=== PATIENT | female | born 1985 | race Caucasian/White ===

== ENCOUNTER 2018-08-21 18:20 | Inpatient (IN) | payer OTHER ==
[2018-08-21] MEDS ORDERED: BUTORPHANOL TARTRATE 2 MG/ML VIAL IVPUSH ONE (18:45)
[2018-08-21] MEDS ORDERED: PROMETHAZINE HCL 25 MG/1 ML VIAL IVPUSH ONE (18:45)
[2018-08-21] MEDS ORDERED: BUTORPHANOL TARTRATE 1 MG/ML VIAL ONE ×2 (19:10)
[2018-08-21] MEDS ORDERED: PROMETHAZINE HCL 25 MG/1 ML VIAL ONE (19:11)
[2018-08-21] MEDS ORDERED: WITCH HAZEL 50% (TUCKS) 40 PAD/JAR PAD TP PRN (19:26)
[2018-08-21] MEDS ORDERED: METHYLERGONOVINE MALEATE 0.2 MG/1 ML AMP IM PRN (19:26)
[2018-08-21] MEDS ORDERED: BISACODYL 10 MG SUPP.RECT RC PRN (19:26)
[2018-08-21] MEDS ORDERED: BENZOCAINE 20% 57 GM BOTTLE TP PRN (19:26)
[2018-08-21] MEDS ORDERED: BENZOCAINE 28 GM HEMORRHOIDAL OINTMENT TP PRN (19:26)
[2018-08-21 19:27] VITALS: BMI 29.6
[2018-08-21] MEDS ORDERED: D5W-LR W/ 20 UNITS OXYTOCIN 20 UNIT/1,000 ML INFUS.BAG IV SCH (19:30)
[2018-08-21] MEDS ORDERED: OXYTOCIN 20 UNITS in 0.9% NS 20 UNIT/1,000 ML INFUS.BAG IV SCH (19:30)
[2018-08-21 20:02] LABS: ANION GAP 13 MMOL/L (8-16); BLOOD UREA NITROGEN 10 mg/dL (7-18); CALCIUM 8.3 mg/dL (8.5-10.1); CHLORIDE 109 mmol/L (98-107); CO2 18 mmol/L (21-32); CREATININE 0.6 mg/dL (0.55-1.3); GLUCOSE,RANDOM 160 mg/dL (74-106); POTASSIUM 3.7 mmol/L (3.5-5.1); SODIUM 140 mmol/L (136-145)
[2018-08-21] MEDS ORDERED: OXYTOCIN 20 UNITS in 0.9% NS 20 UNIT/1,000 ML INFUS.BAG IV ONE (20:09)
[2018-08-21 20:32] LABS: BASO % 0.3 % (0-2.0); EOS % 0.4 % (0-4.5); HEMATOCRIT 35.9 % (32.4-45.2); HEMOGLOBIN 13.1 GM/dL (10.7-15.3); LYMPH % 23.5 % (8-40); MCH 36.5 pg (25.7-33.7); MCHC 36.4 g/dl (32.0-36.0); MEAN CELL VOLUME 100.4 fl (80-96); MEAN PLT VOLUME 12.4 fl (7.5-11.1); NEUT % 70.8 % (42.8-82.8); PLATELET COUNT 112 K/MM3 (134-434); RBC 3.58 M/mm3 (3.60-5.2); RDW 12.8 % (11.6-15.6)
--- NOTE | 2018-08-21 21:04 | HP ---
Past Medical History - Primary Care Physician PCP:: Stan Escalera - Admission Chief Complaint: 39 weeks, labor History of Present Illness: 32 yo f g 2 p1001 39 weeks in labor, cx 9 cm 100 vx 0 mi , fhr cat 1, contraction q 2min strong History Source: Patient Limitations to Obtaining History: No Limitations - Past Medical History ...: 2 ...Para: 1 ...Term: 1 ...: 0 ...Spon : 0 ...Induced : 0 ...Multiple Gestation: 0 ...LMP: 11/17/17 ... Weeks Gestation by Dates: 39.4 ...EDC by Dates: 08/24/18 - Past Surgical History Past Surgical History: No: Cholecystectomy Hx Myomectomy: No Hx Transabdominal Cerclage: No - Smoking History Smoking history: Never smoked Have you smoked in the past 12 months: No - Alcohol/Substance Use Hx Alcohol Use: No - Social History Usual Living Arrangement: Yes: With Spouse History of Recent Travel: No Home Medications - Allergies Allergies/Adverse Reactions: Allergies Allergy/AdvReac Type Severity Reaction Status Date / Time No Known Allergies Allergy Verified 03/12/12 17:16 - Home Medications Home Medications: Ambulatory Orders Pnv No.25/Iron Fumarate/FA/Dha [-1 Capsule] 1 each PO DAILY 03/12/12 Review of Systems - Review of Systems Constitutional: reports: No Symptoms Eyes: reports: No Symptoms HENT: reports: No Symptoms Neck: reports: No Symptoms Gastrointestinal: reports: No Symptoms Genitourinary: reports: No Symptoms Breasts: reports: No Symptoms Reported Musculoskeletal: reports: No Symptoms Integumentary: reports: No Symptoms Neurological: reports: No Symptoms Endocrine: reports: No Symptoms Hematology/Lymphatic: reports: No Symptoms Psychiatric: reports: No Symptoms Physical Exam - Maternity Vital Signs: Vital Signs Temperature 98.4 F 08/21/18 20:15 Pulse Rate 77 08/21/18 20:15 Respiratory Rate 20 08/21/18 20:15 Blood Pressure 115/72 08/21/18 20:15 O2 Sat by Pulse Oximetry (%) 99 08/21/18 20:15 - Abdominal Exam/OB Fundal Height: 40 Number of Fetuses: Single Presentation: Vertex Contractions: Yes Regularity: Regular Intensity: Mod/Strong Monitor Mode: External Heart Rate Location: [facility] Category: I Accelerations: Uniform Decelerations: None - Vaginal Exam/OB Vaginal Bleediing: Bloody Show Speculum Exam: No Dilatation (cm): 9 cm Effacement (%): 100 Amniotic Membrane Status: Intact Station: -1 - Physical Exam Edema: Yes Edema: LLE: Trace, RLE: Trace Deep Tendon Reflex Grade: Normal +2 - Labs Lab Results: CBC, BMP 08/21/18 19:10 08/21/18 19:10 Hemorrhage Risk Assessment - Risk Factors Medium Risk Factors: Yes: None High Risk Factors: Yes: None Risk Score: 1 Risk Level: Medium Risk Problem List - Problems (1) with 39 completed weeks gestation Code(s): Z3A.39 - 39 WEEKS GESTATION OF (2) Labor established Code(s): [id number] - Assessment/Plan admit for vagianl delivery
[2018-08-21 22:04] LABS: INR 0.87 (0.83-1.09); PROTHROMBIN TIME (PATIENT) 10.2 SEC (9.7-13.0)
[2018-08-21 22:07] LABS: ACTIVATED PTT 22.7 SECONDS (25.2-36.5)
[2018-08-21] MEDS ORDERED: TUBERCULIN PPD 5 TU/0.1ML SYRINGE (IN PATIENT USE ONLY) ID ONE (23:15)
[2018-08-22] MEDS ORDERED: OXYTOCIN 20 UNITS in 0.9% NS 20 UNIT/1,000 ML INFUS.BAG IV ONE (00:22)
[2018-08-22 07:19] LABS: BASO % 0.1 % (0-2.0); EOS % 0.3 % (0-4.5); HEMATOCRIT 30.1 % (32.4-45.2); HEMOGLOBIN 10.5 GM/dL (10.7-15.3); LYMPH % 15.9 % (8-40); MCH 35.3 pg (25.7-33.7); MCHC 34.7 g/dl (32.0-36.0); MEAN CELL VOLUME 101.5 fl (80-96); MEAN PLT VOLUME 11.1 fl (7.5-11.1); MONO % 5.6 % (3.8-10.2); NEUT % 78.1 % (42.8-82.8); PLATELET COUNT 102 K/MM3 (134-434); RBC 2.96 M/mm3 (3.60-5.2); RDW 12.7 % (11.6-15.6); WHITE BLOOD COUNT 12.9 K/mm3 (4.0-10.0)
[2018-08-22] MEDS: IBUPROFEN 600 MG TABLET (FP) PO PRN ×2 (07:50→22:52)
[2018-08-22] MEDS: ACETAMINOPHEN 325 MG TABLET (FP) PO PRN ×2 (07:51→22:52)
[2018-08-22] MEDS: FERROUS SO4 325 MG TABLET (FP) PO SCH ×2 (07:52→17:24)
[2018-08-22] MEDS: PRENATAL VITAMINS W/ FOLIC ACID TABLET (FP) PO SCH (09:20)
--- NOTE | 2018-08-22 10:58 | PN ---
Progress Note (short form) - Note Progress Note: ppd 1 no c/o , voids ok , no excess vaginal bleeding CBC, BMP 08/22/18 06:00 08/21/18 19:10 Last Vital Signs Temp Pulse Resp BP Pulse Ox 98.9 F 66 18 100/57 L 99 08/22/18 07:40 08/22/18 07:40 08/22/18 07:40 08/22/18 07:40 08/21/18 20:15 abdomen soft, no distension, no cva uterus firm, non tender lochia mild ppd 1, afebrile , doing well plan ambulate for d/c home in am Problem List - Problems (1) with 39 completed weeks gestation Code(s): Z3A.39 - 39 WEEKS GESTATION OF (2) Labor established Code(s): SPR5436 -
[2018-08-22] MEDS ORDERED: SENNOSIDES/DOCUSATE COMBO (SENNA PLUS) TABLET (UD) PO PRN (22:00)
[2018-08-23] MEDS: FERROUS SO4 325 MG TABLET (FP) PO SCH (08:05)
[2018-08-23] MEDS ORDERED: FLU VACCINE QUAD 60 MCG/0.5 ML (MDV 18-19) IM ONE (08:18)
[2018-08-23 08:35] VITALS: BP 103/63; PULSE 64; TEMP 98
[2018-08-23] MEDS: PRENATAL VITAMINS W/ FOLIC ACID TABLET (FP) PO SCH (10:18)
[2018-08-23] MEDS: IBUPROFEN 600 MG TABLET (FP) PO PRN (10:26)
[2018-08-23] MEDS: ACETAMINOPHEN 325 MG TABLET (FP) PO PRN (10:27)
== END 2018-08-23 13:10 | disposition home or self-care (01) | DRG 560 ==
LOC: JLDR 18:20 → J3W 08-22 00:43
PROVIDERS: ADMIT Obstetrics & Gynecology; ATTEND Obstetrics & Gynecology
PROC: 10E0XZZ Delivery of Products of Conception, External Approach (ICD-10-PCS; principal; 2018-08-21)
PROC: 0HQ9XZZ Repair Perineum Skin, External Approach (ICD-10-PCS; 2018-08-21)
PROC: 0W8NXZZ Division of Female Perineum, External Approach (ICD-10-PCS; 2018-08-21)
DX: O70.0 First degree perineal laceration during delivery (principal); Z3A.39 39 weeks gestation of pregnancy; Z37.0 Single live birth
CPT/HCPCS: 36415; 59409; 80048; 85025; 85610; 85730; 86593; 86850; 86900; 86901; 87389; 90686; G0008